=== PATIENT | male | born 1950 | race Caucasian/White ===

== ENCOUNTER 2016-05-28 15:32 | Emergency (ER) | payer OTHER ==
[~2016-05-28] VITALS: Ht 182.9 cm; Wt 88.1 kg
[~2016-05-28 15:32] MED LIST: HYCODAN SYRUP480 ML PO; ROBITUSSIN AC,T10 ML PO
[2016-05-28] MEDS ORDERED: PREDNISONE20 MG PO (19:09)
[2016-05-28 19:17] VITALS: BP 143/83
== END 2016-05-28 19:18 | disposition home or self-care (01) ==
LOC: EME 15:32
DX: J20.9 Acute bronchitis, unspecified (principal)
CPT/HCPCS: 71020; 94640; 99281; 99284; J7512

== ENCOUNTER 2017-04-11 05:33 | Observation (INO) | payer OTHER ==
[~2017-04-11] VITALS: Ht 182.9 cm; Wt 83.7 kg
[~2017-04-11 05:33] MED LIST changes: +PREDNISONE20 MG PO
[2017-04-11 06:03] LABS: HEMATOCRIT 45.4 % (38.0-50.0); MCH 31.2 PG (29.0-34.0); MCHC 33.9 G/DL (30.0-36.0); MCV 91.9 FL (86-99); MEAN PLAT.VOLUME 9.5 uM^3 (9.0-12.4); PLATELET COUNT 286 K/uL (156-360); RBC DIS.WIDTH-CV 12.6 % (11.8-14.6); RBC DIS.WIDTH-SD 42.4 % (39-53); RED BLOOD COUNT 4.94 M/uL (4.00-5.50); WHITE BLOOD COUNT 11.5 K/uL (4.1-10.2)
[2017-04-11 06:12] LABS: CHLORIDE 105 mEq/L (99-109); POTASSIUM 4.3 mEq/L (3.7-5.4); SODIUM 138 mEq/L (136-147)
[2017-04-11 06:13] LABS: GLUCOSE 116 mg/dL (70-99)
[2017-04-11 06:15] LABS: ANION GAP 10 MEQ/L (2-14)
[2017-04-11 06:17] LABS: GFR ESTIMATE (CALCULATED) > 59 mL/min/
[2017-04-11 06:18] LABS: UREA NITROGEN (BUN) 13 mg/dL (9-23)
[2017-04-11 06:24] LABS: TROP-I INTERPRETATION NEGATIVE; TROPONIN-I < 0.01 ng/mL (0.0-0.30)
[2017-04-11] MEDS ORDERED: ADVAIR HFA120 INHAL1 IH (09:02)
[2017-04-11] MEDS ORDERED: LEVALBUTER1.25 MG/3 IH (09:03)
[2017-04-11] MEDS ORDERED: OMEPRAZOLE40 M1 PO (09:05)
[2017-04-11] MEDS ORDERED: VICKS NYQUIL C236 ML PO (09:06)
[2017-04-11] MEDS ORDERED: THEOPHYLLINE400 MG PO (09:08)
[2017-04-11] MEDS ORDERED: PROAIR HFA8.5 GM IH (09:10)
[2017-04-11 10:13] VITALS: BP 133/84
[2017-04-11 11:50] VITALS: BP 132/75
[2017-04-11 13:07] LABS: TROP-I INTERPRETATION NEGATIVE; TROPONIN-I 0.02 ng/mL (0.0-0.30)
[2017-04-11 15:53] VITALS: BP 148/76
[2017-04-11 17:26] LABS: POINT-OF-CARE METER ID UU14162513
[2017-04-11 19:11] LABS: TROP-I INTERPRETATION NEGATIVE; TROPONIN-I < 0.01 ng/mL (0.0-0.30)
[2017-04-11 20:00] VITALS: BP 141/72
[2017-04-11 21:45] LABS: POINT-OF-CARE METER ID UU13113831
[2017-04-12 01:00] VITALS: BP 125/66
[2017-04-12 04:41] VITALS: BP 119/58
[2017-04-12 08:53] VITALS: BP 113/78
[2017-04-12 08:57] LABS: POINT-OF-CARE METER ID UU13113700
[2017-04-12] MEDS ORDERED: AZITHROMYCIN500 M1 PO (12:31)
[2017-04-12] MEDS ORDERED: PREDNISONE10 MG PO (12:33)
[2017-04-12] MEDS ORDERED: ZYRTEC10 M3 PO (12:33)
[2017-04-12] MEDS ORDERED: ROBITUSSIN AC,T10 ML PO (12:34)
[2017-04-12] MEDS ORDERED: ADVAIR HFA120 INHAL1 IH (12:36)
[2017-04-12 13:04] LABS: POINT-OF-CARE METER ID UU14162513
[2017-04-12 13:18] VITALS: BP 112/55
== END 2017-04-12 13:49 | disposition home or self-care (01) ==
LOC: EME 05:33 → 5WEST 08:23 → EDOF 08:23 → ENRESERV 08:25 → 5WEST 09:55 → ENPENDDIS 04-12 → 5WEST 04-12 13:49
PROVIDERS: Internal Medicine
DX: J45.901 Unspecified asthma with (acute) exacerbation (principal); I49.3 Ventricular premature depolarization; R09.02 Hypoxemia; R50.9 Fever, unspecified; R07.89 Other chest pain
CPT/HCPCS: 71020; 80048; 82948; 83880; 84484; 85027; 93005; 94640; 94640 76; 94799; 99202; 99281; 99285; G0378; J1650; J2930; J3475; J7030

== ENCOUNTER 2017-07-10 08:54 | Observation (INO) | payer OTHER ==
[~2017-07-10] VITALS: Ht 152.4 cm; Wt 83.4 kg
[~2017-07-10 08:54] MED LIST changes: +ADVAIR HFA120 INHAL1 IH; +AZITHROMYCIN500 M1 PO; +LEVALBUTER1.25 MG/3 IH; +OMEPRAZOLE40 M1 PO; +PREDNISONE10 MG PO; +PROAIR HFA8.5 GM IH; +THEOPHYLLINE400 MG PO; +VICKS NYQUIL C236 ML PO; +ZYRTEC10 M3 PO
[2017-07-10 09:47] LABS: HEMOGLOBIN 14.8 G/DL (12.5-16.6); MCH 32.2 PG (29.0-34.0); MCHC 34.4 G/DL (30.0-36.0); MCV 93.7 FL (86-99); PLATELET COUNT 296 K/uL (156-360); RBC DIS.WIDTH-CV 12.7 % (11.8-14.6); RBC DIS.WIDTH-SD 43.6 % (39-53); RED BLOOD COUNT 4.59 M/uL (4.00-5.50); WHITE BLOOD COUNT 7.4 K/uL (4.1-10.2)
[2017-07-10 09:54] LABS: CHLORIDE 104 mEq/L (99-109); POTASSIUM 4.2 mEq/L (3.7-5.4); SODIUM 139 mEq/L (136-147)
[2017-07-10 09:56] LABS: GLUCOSE 105 mg/dL (70-99)
[2017-07-10 10:00] LABS: CREATININE 0.8 mg/dL (0.6-1.3); GFR ESTIMATE (CALCULATED) > 59 mL/min/ (58.99-99999)
[2017-07-10 10:01] LABS: UREA NITROGEN (BUN) 12 mg/dL (9-23)
[2017-07-10 10:06] LABS: TROP-I INTERPRETATION NEGATIVE
[2017-07-10 12:32] LABS: MAGNESIUM 2.3 mg/dL (1.3-2.7)
[2017-07-10 12:39] LABS: CREATINE KINASE 417 IU/L (1-294)
[2017-07-10] MEDS ORDERED: LEVALBUTER1.25 MG/3 IH (14:17)
[2017-07-10] MEDS ORDERED: OMEPRAZOLE40 M1 PO (14:18)
[2017-07-10] MEDS ORDERED: THEO-24400 MG PO (14:19)
[2017-07-10] MEDS ORDERED: PREDNISONE5 MG PO (14:19)
[2017-07-10] MEDS ORDERED: ADVAIR HFA120 INHAL1 IH (14:20)
[2017-07-10] MEDS ORDERED: NAPROSYN375 MG PO (14:21)
[2017-07-10] MEDS ORDERED: VIRTUSSIN AC L118 ML PO (14:22)
[2017-07-10] MEDS ORDERED: MONTELUKAST SOD10 MG PO (14:23)
[2017-07-10] MEDS ORDERED: HYDROCODON-ACE1 EA11 PO (14:23)
[2017-07-10] MEDS ORDERED: BENZONATATE200 MG PO (14:24)
[2017-07-10 16:35] LABS: CREATINE KINASE 315 IU/L (1-294); TOTAL CK 315 IU/L (1-294)
[2017-07-10 16:40] LABS: TROP-I INTERPRETATION NEGATIVE; TROPONIN-I 0.05 ng/mL (0.0-0.30)
[2017-07-10 16:42] LABS: CK-MB 6.1 ng/mL (0.0-4.9); CKMB RELATIVE INDEX 1.9 (0.0-3.9)
[2017-07-10 16:59] VITALS: BP 137/80
[2017-07-10 20:08] VITALS: BP 142/78
[2017-07-10 23:47] VITALS: BP 107/68
[2017-07-11 01:06] LABS: TROP-I INTERPRETATION NEGATIVE; TROPONIN-I 0.02 ng/mL (0.0-0.30)
[2017-07-11 08:22] VITALS: BP 130/60
[2017-07-11 13:37] VITALS: BP 140/66
[2017-07-11] MEDS ORDERED: PREDNISONE5 MG PO (14:36)
[2017-07-11 16:20] VITALS: BP 133/65
== END 2017-07-11 16:58 | disposition home or self-care (01) ==
LOC: EME 08:54 → EDOF 13:49 → 5WEST 13:49 → EDOF 13:49 → ENRESERV 13:56 → EDOF 14:10 → ENRESERV 14:34 → EDOF 16:23 → ENRESERV 16:28 → 5WEST 16:46 → ENPENDDIS 07-11 → 5WEST 07-11 16:58
PROVIDERS: Internal Medicine; Nurse Practitioner Family
DX: J45.901 Unspecified asthma with (acute) exacerbation (principal); J20.9 Acute bronchitis, unspecified; K21.9 Gastro-esophageal reflux disease without esophagitis; R07.81 Pleurodynia; Z90.49 Acquired absence of other specified parts of digestive tract; Z87.891 Personal history of nicotine dependence
CPT/HCPCS: 71046; 80048; 82550 91; 82553; 83735; 84484; 85027; 85379; 93005; 94640; 94640 76; 99202; 99281; 99285; G0378; J1650; J2930